=== PATIENT | female | born 1995 | race Hispanic/Latino ===

== ENCOUNTER 2023-05-15 17:20 | Emergency (ER) | payer OTHER ==
[~2023-05-15] VITALS: Ht 160 cm; Wt 70.3 kg
[2023-05-15] MEDS ORDERED: PREDNISONE 20 MG TABLET PO SCH (18:00)
[2023-05-15] MEDS ORDERED: DIPHENHYDRAMINE HCL 25 MG CAPSULE PO SCH (18:00)
[2023-05-15] MEDS ORDERED: DIPH50 PO (18:01)
[2023-05-15] MEDS ORDERED: PRED50TA2 PO (18:01)
[2023-05-15] MEDS ORDERED: CIME400T PO (18:01)
[2023-05-15 18:05] VITALS: BP 125/87
== END 2023-05-15 18:45 | disposition home or self-care (01) ==
LOC: EDH 17:20
DX: T78.49XA Other allergy, initial encounter (principal); X58.XXXA Exposure to other specified factors, initial encounter
CPT/HCPCS: 99283; Q0163

== ENCOUNTER 2025-10-13 14:34 | Emergency (ER) | payer OTHER ==
[~2025-10-13] VITALS: Ht 160 cm; Wt 68.0 kg
--- NOTE | 2025-10-13 14:47 | ERN ---
ED Note History of Present Illness Stated Complaint: HEADACHE/ CRAMPS/NAUSEA Chief Complaint: Multiple Complaints Time Seen by MD: 14:38 Dictation: PATIENT IS A 29-YEAR-OLD FEMALE THAT IS COMING IN TODAY WITH FRONTAL HEADACHE ABDOMINAL CRAMPING AND NAUSEA SHE HAS HAD FOR TWO WEEKS. NO FEVER NO CHILLS NO DIARRHEA. SHE STATES SHE HAS ALREADY BEEN TO [facility] LAST WEEK WAS TOLD THAT SHE WILL BE REFERRED TO A [facility] BECAUSE THERE FINDINGS WERE CALLED ALL NORMAL SHE STATES SHE IS CURRENTLY ON HER MENSES. SHE STATES SHE HAS NO PRIMARY CARE DOCTOR AND NO CIRCUIT WALKER DOCTOR. Allergies: Coded Allergies: No Known Allergies (Unverified Allergy, Unknown, 05/15/23) Home Meds Active Scripts Prednisone (Prednisone) 50 Mg Tablet, 50 MG PO DAILY for 5 Days, #5 TAB 0 Refills Prov:RYAN MONTAÑO MD 05/15/23 Diphenhydramine HCl (Benadryl) 50 Mg Cap, 50 MG PO Q6H for itching/rash, #20 CAP 0 Refills Prov:RYAN MONTAÑO MD 05/15/23 Cimetidine (Cimetidine) 400 Mg Tablet, 400 MG PO BID for allergy, #30 TAB 0 Refills Prov:RYAN MONTAÑO MD 05/15/23 Past Medical History Past Medical History: No Pertinent History Surgical History: None Social History: Negative, Lives with family LMP: Oct 13, 2025 RN Note Reviewed/Agreed w/PFSH: Yes Review of System Dictation CONSTITUTIONAL: NEGATIVE EXCEPT FOR HPI HEAD/FACE: NEGATIVE EXCEPT FOR HPI EENT: NEGATIVE EXCEPT FOR HPI RESPIRATORY: NEGATIVE EXCEPT FOR HPI GASTROINTESTINAL/ABDOMINAL: NEGATIVE EXCEPT FOR HPI NAUSEA WITH PELVIC CRAMPS GENITOURINARY: NEGATIVE EXCEPT FOR HPI MUSCULOSKELETAL: NEGATIVE EXCEPT FOR HPI INTEGUMENTARY: NEGATIVE EXCEPT FOR HPI NEUROLOGICAL/PSYCH: NEGATIVE EXCEPT FOR HPI FRONTAL HEADACHE HEMATOLOGIC/LYMPHATIC: NEGATIVE EXCEPT FOR HPI ALL SYSTEMS NEGATIVE, EXCEPT NOTED ABOVE. 13 POINT REVIEW OF SYSTEMS ASSESSED AND ALL NEGATIVE EXCEPT FOR ABOVE. Initial Vital Sign VS Vital Signs Date Time Temp Pulse Resp B/P (MAP) Pulse Ox O2 Delivery O2 Flow Rate FiO2 10/13/25 14:36 98.4 86 18 129/79 100 Room Air 10/13/25 15:34 0 21 Physical Exam Dictation VITAL SIGNS REVIEWED GENERAL APPEARANCE: ALERT, ORIENTED X 3, NO ACUTE DISTRESS, WELL DEVELOPED, NOURISHED. OBESE HEAD AND FACE: NON-TRAUMATIC. EYES: PERRL, PINK CONJUNCTIVAS, EYELID NO TRAUMA, ANTERIOR CHAMBER WITH ARCUS SENILIS. EARS: PINNAS INTACT AND NO SIGNS OF TRAUMA OR ERYTHEMA EAR CANALS CLEAR AND NO DISCHARGE TM NO ERYTHEMA NOSE: NO DISCHARGE, NO BLEEDING. OROPHARYNX: MOUTH NORMAL, TONGUE PINK, PHARYNX CLEAR,NO ERYTHEMA, TONSILS NO EXUDATES, NO ABSCESSES NOTED, MUCOUS MEMBRANE MOIST NECK: SUPPLE, NON-TENDER, NO THYROMEGALY, NO MASSES, NO JVD, NO BRUITS BREAST:DEFERRED CHEST:NO TENDERNESS, NO CREPITUS, NO PARADOXICAL MOVEMENT, NO RETRACTIONS LUNGS:CLEAR, WELL-VENTILATED, SYMMETRIC, NO RALES, NO WHEEZING, NO RHONCHI, NO STRIDOR, GOOD BREATH SOUNDS BILATERALLY HEART: REGULAR RATE, REGULAR RHYTHM, NO MURMUR, NO GALLOPS VASCULAR: NO PERIPHERAL EDEMA, ABDOMEN: SOFT, POSITIVE BOWEL SOUNDS, NONDISTENDED, NO GUARDING, NONTENDER, NO REBOUND, NO MASSES NO HEPATOMEGALY, NO SPLENOMEGALY, NO OATES'S SIGN, NO HERNIAS. NO FOCAL TENDER RECTAL: DEFERRED GENITAL: DEFERRED NEUROLOGICAL: NORMAL SPEECH, MOTOR FUNCTION INTACT, SENSORY FUNCTION INTACT MUSCULOSKELETAL: NECK NONTENDER, FULL RANGE OF MOTION, BACK NONTENDER, FULL RANGE OF MOTION, EXTREMITIES: NONTENDER, FULL RANGE OF MOTION SKIN: COLOR PINK, DRY, NO TURGOR, NO RASH, NO LACERATIONS, NO ABRASIONS, NO CONTUSIONS. LYMPHATIC: DEFERRED Results (Laboratory/Radiology) Laboratory/Radiology Laboratory Tests Test 10/13/25 15:00 10/13/25 15:08 Urine Color YELLOW (YELLOW) Urine Appearance CLEAR (CLEAR) Urine pH 5.0 (5.0-8.0) Urine Specific [place] 1.025 (1.001-1.031) Urine Protein 100 mg/dL (NEGATIVE) H Urine Glucose (UA) NEGATIVE mg/dL (NEGATIVE) Urine Ketones 5 mg/dL (NEGATIVE) H Urine Occult Blood LARGE (NEGATIVE) H Urine Nitrate POSITIVE (NEGATIVE) H Urine Bilirubin NEGATIVE mg/dL (NEGATIVE) Urine Urobilinogen 1.0 mg/dL (0.2-1.0) Urine Leukocyte Esterase TRACE Annie/uL (NEGATIVE) H Urine RBC TNTC /HPF (0-1) H Urine WBC 2-5 /HPF (0-1) H Urine Squamous Epithelial Cells None Seen /HPF (0-2) Urine Bacteria Few /HPF (None Seen) Urine HCG, Qualitative NEGATIVE (NEGATIVE) White Blood Count 9.7 K/uL (4.8-10.8) Red Blood Count 4.42 MIL/uL (4.00-5.50) Hemoglobin 13.6 g/dL (12.0-16.0) Hematocrit 41.4 % (36-48) Mean Corpuscular Volume 93.7 fL (79-99) Mean Corpuscular Hemoglobin 30.8 pg (27.0-33.0) Mean Corpuscular Hemoglobin Concent 32.9 g/dL (32.0-36.0) Red Cell Distribution Width 12.8 % (11.0-15.5) Platelet Count 408 K/uL (130-400) H Mean Platelet Volume 9.7 fL (7.5-10.5) Immature Granulocyte % (Auto) 0.4 % (0-1) Neutrophils (%) (Auto) 59.2 % (40.0-77.0) Lymphocytes (%) (Auto) 32.4 % (21.0-51.0) Monocytes (%) (Auto) 5.2 % (3.0-13.0) Eosinophils (%) (Auto) 2.2 % (0.0-8.0) Basophils (%) (Auto) 0.6 % (0.0-5.0) Neutrophils # (Auto) 5.8 K/uL (1.8-7.7) Lymphocytes # (Auto) 3.2 K/uL (1.0-4.8) Monocytes # (Auto) 0.5 K/uL (0.1-1.0) Eosinophils # (Auto) 0.21 K/uL (0.00-0.70) Basophils # (Auto) 0.06 K/uL (0.00-0.20) Absolute Immature Granulocyte (auto 0.04 K/uL (0-1) Nucleated Red Blood Cells 0.0 % (0.0-0.19) Sodium Level 138 mmol/L (136-145) Potassium Level 3.2 mmol/L (3.5-5.1) L Chloride Level 100 mmol/L (101-111) L Carbon Dioxide Level 30 mmol/L (21-32) Blood Urea Nitrogen 6 mg/dL (7-18) L Creatinine 0.6 mg/dL (0.5-1.0) Glomerular Filtration Rate Calc 126 mL/min (>90) Random Glucose 93 mg/dL (70-105) Total Calcium 9.0 mg/dL (8.5-10.1) Labs Reviewed?: Yes ED Course ED Course Orders Procedure Category Date Status Time Cbc With Differential LAB 10/13/25 Complete 14:42 ,Urine Test LAB 10/13/25 Complete 14:42 Urinalysis Profile LAB 10/13/25 Complete 14:42 Basic Metabolic Panel LAB 10/13/25 Complete 14:42 Potassium Bicarb/Cit PHA 10/13/25 Complete Ac 25meq (K-Lyte Ta 16:00 Culture Urine LOLLY 10/13/25 Logged 15:38 Current Medications Medications (Trade) Dose Ordered Sig/Jasper Route PRN Reason Start Time Stop Time Status Last Admin Dose Admin Potassium Bicarbonate (K-Lyte Tablet Eff 25 Meq Tablet.eff) 25 meq ONCE ONCE PO 10/13/25 16:00 10/13/25 16:01 DC 10/13/25 16:03 Vital Signs Date Time Temp Pulse Resp B/P (MAP) Pulse Ox O2 Delivery O2 Flow Rate FiO2 10/13/25 15:34 98.8 86 18 127/79 99 Room Air* 0 21 10/13/25 14:36 98.4 86 18 129/79 100 Room Air 1610/DISCUSSED CLINICAL FINDINGS WITH PATIENT SHE IS AWARE THAT THERE WAS NO EMERGENT CONDITIONS OTHER MILD HYPOKALEMIA AND THIS WAS REPLACED IN THE EMERGENCY ROOM. SHE SAID SHE WILL FOLLOW BACK UP WITH [facility] TOMORROW WHO HAD PROMISED HER THEY WOULD MAKE A REFERRAL TO A FAMILY DOCTOR. PATIENT AT BEDSIDE ALL QUESTIONS ANSWERED Medical Decision Making MDM MEDICAL DECISION-MAKING BASED ON BASIC LABS URINALYSIS AND TEST. NO ACUTE FINDINGS EXCEPT MILD DEHYDRATION AND HYPOKALEMIA PATIENT HAS A HEMATURIA HOWEVER SHE IS ON HER MENSES AND STARTED THAT YESTERDAY. SHE WILL BE DISCHARGED HOME WITH ZOFRAN AND PAIN MEDS FOR HER DYSMENORRHEA TOLD SEE HER DOCTOR TOMORROW FOR FOLLOW UP DX & DISP Disposition: Discharge Departure Impression: Primary Impression: Dysmenorrhea Additional Impressions: Hypokalemia, Mild dehydration, Nausea & vomiting Condition: Stable Scripts Ibuprofen (Ibuprofen 800 mg Tab) 800 Mg Tab 800 MG PO Q8H PRN for fever or pain, #30 TAB 0 Refills Prov: PK FLORENCEP 10/13/25 Ondansetron (Ondansetron Odt) 4 Mg Tab.rapdis 4 MG PO Q6HPRN PRN for nausea, #16 TAB 0 Refills Prov: NAMANPK PASCUALP 10/13/25 Additional Instructions: FOLLOW-UP WITH PRIMARY CARE PROVIDER IN 1 TO 2 DAYS. TAKE MEDICATIONS DIRECTED HERE IN THE EMERGENCY ROOM. OKAY TO CONTINUE HOME MEDICATIONS UNLESS OTHERWISE DISCUSSED DURING YOUR VISIT IN THE EMERGENCY ROOM TODAY. RETURN TO [facility] EMERGENCY ROOM IF SYMPTOMS WORSEN OR IF THERE IS NO IMPROVEMENT. CALL 911 IF YOU NEED IMMEDIATE ASSISTANCE. TAKE TYLENOL OR MOTRIN [id number] NEEDED AND IF NO CONTRAINDICATIONS ARE PRESENT. INCREASE ORAL HYDRATION. A WOUND CULTURE OR URINE CULTURE WAS ORDERED HERE IN THE EMERGENCY ROOM DEPARTMENT PLEASE FOLLOW-UP WITH PRIMARY CARE PROVIDER AND ADVISE THEM TO GET REPEAT PORTS FROM OUR FACILITY. IF YOU HAD ANY KAVITA WRAP/SPLINTS THAT WERE APPLIED HERE, PLEASE DO NOT REMOVE THEM UNTIL YOU SEE YOUR PRIMARY CARE OR SPECIALTY. DIET AND ACTIVITY TOLERATED. FOLLOW BACK UP WITH THE YOUR CLINIC TOMORROW FOR REFERRAL TO YOUR FAMILY DOCTOR TAKE IBUPROFEN EVERY 6-8 HOURS WITH FOOD NEEDED FOR PAIN WARM COMPRESSES TO ABDOMEN THREE TO 4 TIMES A DAY NEEDED FOR PAIN INCREASE YOUR WATER INTAKE. Referrals: SELF,REFERRAL (PCP) Time of Disposition: 16:11 I have reviewed the case, and I agree with, Diagnosis and Plan PK FLORENCE Oct 13, 2025 14:47
[2025-10-13 15:25] LABS: IMMATURE GRANULOCYTE ABSOLUTE 0.04 K/uL (0-1); NUCLEATED RED BLOOD CELLS 0.0 % (0.0-0.19); PLATELET COUNT (AUTO) 408 K/uL (130-400); RED BLOOD CELL COUNT(AUTO) 4.42 MIL/uL (4.00-5.50); RED CELL DISTRIBUTION WIDTH 12.8 % (11.0-15.5); WHITE BLOOD COUNT (AUTO) 9.7 K/uL (4.8-10.8)
[2025-10-13 15:29] LABS: CREATININE 0.6 mg/dL (0.5-1.0); GLOMERULAR FILTR. RATE CALC 126.0 mL/min (>90); GLUCOSE,RANDOM 93.0 mg/dL (70-105); SODIUM SERUM 138.0 mmol/L (136-145); UREA NITROGEN, BLOOD 6.0 mg/dL (7-18)
[2025-10-13 15:35] LABS: APPEARANCE,URINE CLEAR (CLEAR); GLUCOSE, URINE (UA) NEGATIVE (NEGATIVE); LEUKOCYTE ESTERASE ,URINE TRACE Leu/uL (NEGATIVE); NITRATE,URINE POSITIVE (NEGATIVE); OCCULT BLOOD,URINE LARGE (NEGATIVE)
[2025-10-13 15:38] LABS: ADD UA MICROSCOPIC YES
[2025-10-13 15:41] LABS: SQUAMOUS EPITHELIAL CELL,UR None Seen /HPF (0-2)
[2025-10-13 15:42] LABS: HCG,QUALITATIVE URINE NEGATIVE (NEGATIVE)
[2025-10-13 16:18] VITALS: BP 128/67; PULSE 83; RESP 17; TEMP 98.7; O2SAT 98
--- NOTE | 2025-10-13 16:20 | NUR ---
PT STABLE NO DISTRESS VITALS WNL NO C/O PAIN NOW PT GIVEN INSTRUCTIONS FOR HOME, VERBALIZED UNDERSTANDING, PT HAS NO IV AT THIS TIME. PT DRIVEN HOME BY SPOUSE.
== END 2025-10-13 16:22 | disposition home or self-care (01) ==
LOC: EDH 14:34
DX: N94.6 Dysmenorrhea, unspecified (principal); E86.0 Dehydration; E87.6 Hypokalemia; R11.2 Nausea with vomiting, unspecified; Z79.52 Long term (current) use of systemic steroids
CPT/HCPCS: 36415; 80048; 81001; 81025; 85025; 87086; 99283